=== PATIENT | female | born 1945 | race Caucasian/White ===

== ENCOUNTER → 2019-10-28 16:31 | Outpatient (BNVA) | payer MEDICARE, SELFPAY | PROVIDERS: Family Provider Internal Medicine; PCP Internal Medicine; Visit Provider Urology | DX: B37.3 Candidiasis of vulva and vagina (principal); N30.90 Cystitis, unspecified without hematuria; N20.9 Urinary calculus, unspecified | CPT/HCPCS: 80053; 81001; 87077; 87086; 87186 ==

== ENCOUNTER → 2019-12-17 12:55 | Outpatient (BNVA) | payer MEDICARE, SELFPAY | PROVIDERS: Family Provider Internal Medicine; PCP Internal Medicine; Visit Provider Urology | DX: N30.90 Cystitis, unspecified without hematuria (principal); N20.9 Urinary calculus, unspecified | CPT/HCPCS: 81001 ==

== ENCOUNTER 2022-09-21 04:17 | Emergency (ER) | payer MEDICARE, SELFPAY ==
[2022-09-21 04:38] VITALS: BP 141/85; PULSE 82; RESP 20; TEMP 37.1; O2SAT 97; BMI 24.0
[2022-09-21 04:40] LABS: Basophils % 0.3 %; Eosinophils % 0.5 %; Hematocrit 41.5 % (37.0-47.0); Hemoglobin 13.4 g/dL (11.5-15.3); Lymphocytes # 1.6 10^3/uL (0.8-4.8); Lymphocytes % 21.9 %; Mean Corpuscular HGB Conc 32.3 g/dL (30.0-36.0); Mean Corpuscular Hemoglobin 28.9 pg (28.0-34.0); Mean Corpuscular Volume 89.4 fl (81-99); Mean Platelet Volume 9.1 fL (7.4-10.4); Monocytes # 0.5 10^3/uL (0.2-0.9); Monocytes % 6.5 %; Neutrophils # 5.24 10^3/uL (1.8-7.7); Neutrophils % 70.4 %; Nucleated Red Blood Cells % 0 %; Platelet Count 191 10^3/cmm (130-400); Red Blood Count 4.64 10^6/uL (4.1-5.3); Red Cell Distribution Width 12.7 % (12.1-15.1); White Blood Count 7.4 10^3/uL (4.0-10.0)
--- NOTE | 2022-09-21 04:41 | CTR_ITS ---
PROCEDURE INFORMATION: Exam: CT Abdomen And Pelvis Without Contrast Exam date and time: 09/21/2022 4:58 AM Age: 77 years old Clinical indication: Abdominal pain; Flank; Right; Additional info: Right flank pain TECHNIQUE: Imaging protocol: Computed tomography of the abdomen and pelvis without contrast. Radiation optimization: All CT scans at this facility use at least one of these dose optimization techniques: automated exposure control; mA and/or kV adjustment per patient size (includes targeted exams where dose is matched to clinical indication); or iterative reconstruction. REPORTING DATA: Count of CT and Cardiac NM exams in prior 12 months: This patient has received 0 known CTs and 0 known cardiac nuclear medicine studies in the 12 months prior to the current study. COMPARISON: CT kidney stone [id number] 08/29/2016 12:35 PM RADIATION DOSE METRICS: Total DLP (mGy-cm): 357.9 FINDINGS: Lungs: Lung bases are clear. Diaphragm: There is a small sliding-type hiatal hernia. Liver: There are few small liver cysts measuring up to 12 mm, decreased in size since 2017. Gallbladder and bile ducts: The gallbladder is normal. There is no biliary dilation. Pancreas: The pancreas is unremarkable. Spleen: The spleen is unremarkable. Adrenal glands: The adrenal glands are unremarkable. Kidneys and ureters: The right kidney is under rotated. There is diffuse hypodensity of the right kidney compared to the left consistent with edema. There is severe right hydronephrosis and hydroureter to the level of a stone at the ureterovesical junction measuring 3 x 2 x 2 mm. No intrarenal stones. The left kidney and ureter are unremarkable. Stomach and bowel: The stomach is decompressed, preventing meaningful evaluation of wall thickness. The small bowel is nondilated. Unremarkable rectosigmoid anastomosis. No sign colonic inflammation. Appendix: The appendix is not visible. Intraperitoneal space: There is no free air or significant intraperitoneal free fluid. Vasculature: There is mild aortic atherosclerotic disease. Lymph nodes: There is no lymphadenopathy in the retroperitoneum, mesentery, pelvis or inguinal regions. Urinary bladder: The urinary bladder is decompressed, preventing meaningful evaluation of wall thickness. Reproductive: The uterus is absent. There is no adnexal mass or large cyst. Bones/joints: There is mild degenerative disease in the lumbar spine. The pelvis and hips are unremarkable. Soft tissues: The abdominal wall is intact. CT/CT kidney stone [id number] IMPRESSION: 1. 3 mm obstructive stone at the right ureterovesical junction producing severe hydronephrosis and renal edema. 2. No intrarenal stones. 3. Incidental findings above. COMMENTS: Consistent with the [employer]'s Incidental Findings Committee white paper (J Am Rafael Radiol 2018): Any incidental renal lesion less than 1 cm or classified as too small to characterize, or any incidental cystic renal lesion characterized as simple-appearing, is likely benign. No follow-up imaging is recommended for these lesions per consensus recommendations based on imaging criteria.
--- NOTE | 2022-09-21 04:42 | ED_ITS ---
Documented by User: Zonia Case MD 09/21/22 04:44 HPI - Female Genitourinary General: Chief complaint: Urogenital-Female Stated complaint: back pain, dx with kidney stone Time Seen by Provider: 09/21/22 04:23 Source: patient Mode of arrival: ambulatory Limitations: no limitations History of Present Illness: 77-year-old female states she started having a sudden onset of flank pain yesterday states in her right flank goes to her right groin she has been having nausea and vomiting with that states her pain is a 9 out of 10. She believes she may have a kidney stone no history of kidney stone in the past. Denies any actual abdominal pain denies any worsening proving factors. Associated symptoms: Reports abdominal pain and nausea; Deny headache(s) Review of Systems Const: Denies: fever(s), chills, body aches or change in appetite ENMT: Denies: throat pain or dental pain Card: Denies: chest pain Resp: Denies: dyspnea GI: Reports: abdominal pain, nausea and vomiting; Denies: diarrhea : Reports: flank pain; Denies: dysuria Musc: Denies: neck pain or back pain Skin/Breast: Denies: rash Neuro: Denies: headache(s) PFSH ED PFSH: Medical History Chronic cystitis History of benign breast biopsy History of colon cancer Insomnia Recurrent cystitis Urolithiasis Yeast vaginitis Surgical History History of appendectomy History of hysterectomy History of partial colectomy Family History Father , at age 42 MVA (motor vehicle accident) Mother , at age 92 No problems noted. Other Cancer Lung disease Social History Smoking and tobacco status: never smoked Alcohol intake: never Marital status: Current occupational status: retired Physical Exam Const: COMMON NORMALS: patient oriented x3 and healthy appearing HENMT: COMMON NORMALS: normocephalic and atraumatic HEAD & SCALP: normocephalic and atraumatic Eye: COMMON NORMALS: conjunctivae normal CONJUNCTIVA: Yes conjunctivae normal Neck/C-Spine: COMMON NORMALS: full ROM and supple Chest: COMMONS NORMALS: normal inspection of the chest and normal palpation of entire chest wall Resp: COMMON NORMALS: normal respiratory effort, No retractions, No use of accessory muscles and clear to auscultation bilaterally AUSCULTATION: clear to auscultation bilaterally Cardio: COMMON NORMALS: regular rate, regular rhythm and No murmurs present (Cardio) RATE: regular rate RHYTHM: regular rhythm GI: COMMON NORMALS: Normal to inspection, nondistended, normoactive bowel sounds present, Soft to palpation, non-tender and no masses PALPATION: Yes Soft to palpation Extremity: COMMON NORMALS: normal to inspection and full ROM Neuro: COMMON NORMALS: patient oriented x3, moves all extremities and no focal motor deficits Psych: COMMON NORMALS: mental status grossly normal, Normal thought process present and cooperative THOUGHT PROCESS: Normal thought process present Skin: COMMON NORMALS: no rashes or lesions noted and no wounds GENERAL SKIN EXAM: no rashes or lesions noted Course Vital Signs: Vital signs: Vital Signs Temperature 98.7 F 09/21/22 04:38 Pulse Rate 92 09/21/22 05:30 Respiratory Rate 17 09/21/22 07:55 Blood Pressure 133/70 09/21/22 07:55 Pulse Oximetry 97 09/21/22 07:55 Oxygen Delivery Me thod Room Air 09/21/22 07:00 MDM - Female Lab Data 09/21/22 04:34 09/21/22 04:34 Radiology Impressions Abdomen/Pelvis CT 09/21/22 04:41 IMPRESSION: 1. 3 mm obstructive stone at the right ureterovesical junction producing severe hydronephrosis and renal edema. 2. No intrarenal stones. 3. Incidental findings above. COMMENTS: Consistent with the [employer]'s Incidental Findings Committee white paper (J Am Rafael Radiol 2018): Any incidental renal lesion less than 1 cm or classified as too small to characterize, or any incidental cystic renal lesion characterized as simple-appearing, is likely benign. No follow-up imaging is recommended for these lesions per consensus recommendations based on imaging criteria. Laboratory Results WBC 7.4 10^3/uL (4.0-10.0) 09/21/22 04:34 RBC 4.64 10^6/uL (4.1-5.3) 09/21/22 04:34 Hgb 13.4 g/dL (11.5-15.3) 09/21/22 04:34 Hct 41.5 % (37.0-47.0) 09/21/22 04:34 MCV 89.4 fl (81-99) 09/21/22 04:34 MCH 28.9 pg (28.0-34.0) 09/21/22 04:34 MCHC 32.3 g/dL (30.0-36.0) 09/21/22 04:34 RDW 12.7 % (12.1-15.1) 09/21/22 04:34 Plt Count 191 10^3/cmm (130-400) 09/21/22 04:34 MPV 9.1 fL (7.4-10.4) 09/21/22 04:34 Neut % (Auto) 70.4 % 09/21/22 04:34 Lymph % (Auto) 21.9 % 09/21/22 04:34 [place] % (Auto) 6.5 % 09/21/22 04:34 Eos % (Auto) 0.5 % 09/21/22 04:34 Baso % (Auto) 0.3 % 09/21/22 04:34 Neut # (Auto) 5.24 10^3/uL (1.8-7.7) 09/21/22 04:34 Lymph # (Auto) 1.6 10^3/uL (0.8-4.8) 09/21/22 04:34 [place]aine # (Auto) 0.5 10^3/uL (0.2-0.9) 09/21/22 04:34 Eos # (Auto) 0.0 10^3/uL (0.0-0.8) 09/21/22 04:34 Baso # (Auto) 0.0 10^3/uL (0.0-0.1) 09/21/22 04:34 Nucleated RBC % (auto) 0 % 09/21/22 04:34 Nucleated RBCs # 0.0 /100WBC 09/21/22 04:34 Sodium 138 mmol/L (136-145) 09/21/22 04:34 Potassium 3.8 mmol/L (3.5-5.1) 09/21/22 04:34 Chloride 101 mmol/L (98-107) 09/21/22 04:34 Carbon Dioxide 24 mmol/L (22-29) 09/21/22 04:34 Anion Gap 16.8 (5-19) 09/21/22 04:34 BUN 15 mg/dL (8-23) 09/21/22 04:34 Creatinine 0.7 mg/dL (0.5-0.9) 09/21/22 04:34 GFR Calculation Not Reportable 09/21/22 04:34 Glucose 112 mg/dL (65-115) 09/21/22 04:34 Calculated Osmolality 288 mOsm/kg (285-295) 09/21/22 04:34 Calcium 9.4 mg/dL (8.5-10.5) 09/21/22 04:34 Total Bilirubin 1.1 mg/dL (0.15-1.2) 09/21/22 04:34 AST 26 U/L (0-32) 09/21/22 04:34 ALT 12 U/L (0-33) 09/21/22 04:34 Alkaline Phosphatase 74 U/L (35-105) 09/21/22 04:34 Total Protein 7.3 g/dL (6.6-8.7) 09/21/22 04:34 Albumin 4.4 g/dL (3.5-5.2) 09/21/22 04:34 Globulin 2.9 g/dL (1.3-4.6) 09/21/22 04:34 Lipase 28 U/L (13-60) 09/21/22 04:34 Urine Color Yellow (Yellow) 09/21/22 06:02 Urine Appearance Hazy (CLEAR) A 09/21/22 06:02 Urine pH 5 (5-7) 09/21/22 06:02 Ur Specific [place] 1.020 (1.005-1.030) 09/21/22 06:02 Urine Protein Neg (Negative) 09/21/22 06:02 Urine Glucose (UA) Norm (Normal) 09/21/22 06:02 Urine Ketones 2+ (Negative) H 09/21/22 06:02 Urine Blood 2+ (Negative) H 09/21/22 06:02 Urine Nitrate Negative (Negative) 09/21/22 06:02 Urine Bilirubin Neg (Negative) 09/21/22 06:02 Urine Urobilinogen Neg mg/dL (Negative) 09/21/22 06:02 Ur Leukocyte Esterase Negative (Negative) 09/21/22 06:02 Urine RBC 5-10 /hpf (0-2) H 09/21/22 06:02 Urine WBC 0-4 /hpf (0-5) H 09/21/22 06:02 Ur Squamous Epith Cells 0-4 /hpf (0-5) H 09/21/22 06:02 Calcium Oxalate Crystal 25-40 /hpf H 09/21/22 06:02 Amorphous Sediment Not Reportable 09/21/22 06:02 Urine Bacteria Trace /hpf (NONE) 09/21/22 06:02 Urine Mucus 1+ /hpf 09/21/22 06:02 Discharge Plan Discharge Patient Disposition: Home Clinical Impression: Nephrolithiasis Condition: Stable Prescriptions: New hydrocodone-acetaminophen 5-325 mg tablet 1 tab PO Q6H PRN (Reason: pain) Qty: 20 0RF promethazine 25 mg tablet 25 mg PO Q6H PRN (Reason: nausea and vomiting) Qty: 20 0RF tamsulosin 0.4 mg capsule 0.4 mg PO DAILY Qty: 30 0RF No Action fluconazole 150 mg tablet 150 mg PO Q3D Qty: 2 1RF ciprofloxacin HCl 500 mg tablet 500 mg PO BID Qty: 60 1RF Discharge Orders: Discharge ED (Routine); Ordered 09/21/22 Ordered By: Renny Salgado Referrals: Casper Concepcion DO [Primary Care Provider] - Discharge Diet: Usual diet Discharge Activity: Increase activity as tolerated Patient Instructions: Opioid Safety, Pain Management Activity Restrictions/Additional Instructions: You were seen today for nephrolithiasis. You have a 3 mm stone that is about to pass into the bladder. Recommend use of hydrocodone for pain tamsulosin 1 daily which helps kidney stones pass faster. You can use the promethazine as needed for nausea and vomiting. Case management make arrangements for you to follow-up with Dr. Romero as an outpatient. Coding Level of Care Code ED Dye Colorist Formulator for Chg Fwd Documented by User: Renny Salgado DO 09/21/22 08:16 HPI - Female Genitourinary General: Chief complaint: Urogenital-Female Stated complaint: back pain, dx with kidney stone Time Seen by Provider: 09/21/22 04:23 PFSH ED PFSH: Medical History Chronic cystitis History of benign breast biopsy History of colon cancer Insomnia Recurrent cystitis Urolithiasis Yeast vaginitis Surgical History History of appendectomy History of hysterectomy History of partial colectomy Family History Father , at age 42 MVA (motor vehicle accident) Mother , at age 92 No problems noted. Other Cancer Lung disease Social History Smoking and tobacco status: never smoked Alcohol intake: never Marital status: Current occupational status: retired Course Vital Signs: Vital signs: Vital Signs Temperature 98.7 F 09/21/22 04:38 Pulse Rate 92 09/21/22 05:30 Respiratory Rate 17 09/21/22 07:55 Blood Pressure 133/70 09/21/22 07:55 Pulse Oximetry 97 09/21/22 07:55 Oxygen Delivery Me thod Room Air 09/21/22 07:00 MDM - Female Medical Decision Making Care assumed at change of shift from Dr. Case. Patient is resting comfortably when I went to the exam room. CT shows 3 mm right UVJ stone. Discharge patient home on tamsulosin and hydrocodone strain urine and also promethazine as needed. Follow-up appointment with Dr. Romero through case management. Medical Records I reviewed the patient's medical records. Lab Data I reviewed the patient's lab results. 09/21/22 04:34 09/21/22 04:34 Radiology Impressions Abdomen/Pelvis CT 09/21/22 04:41 IMPRESSION: 1. 3 mm obstructive stone at the right ureterovesical junction producing severe hydronephrosis and renal edema. 2. No intrarenal stones. 3. Incidental findings above. COMMENTS: Consistent with the [employer]'s Incidental Findings Committee white paper (J Am Rafael Radiol 2018): Any incidental renal lesion less than 1 cm or classified as too small to characterize, or any incidental cystic renal lesion characterized as simple-appearing, is likely benign. No follow-up imaging is recommended for these lesions per consensus recommendations based on imaging criteria. Laboratory Results WBC 7.4 10^3/uL (4.0-10.0) 09/21/22 04:34 RBC 4.64 10^6/uL (4.1-5.3) 09/21/22 04:34 Hgb 13.4 g/dL (11.5-15.3) 09/21/22 04:34 Hct 41.5 % (37.0-47.0) 09/21/22 04:34 MCV 89.4 fl (81-99) 09/21/22 04:34 MCH 28.9 pg (28.0-34.0) 09/21/22 04:34 MCHC 32.3 g/dL (30.0-36.0) 09/21/22 04:34 RDW 12.7 % (12.1-15.1) 09/21/22 04:34 Plt Count 191 10^3/cmm (130-400) 09/21/22 04:34 MPV 9.1 fL (7.4-10.4) 09/21/22 04:34 Neut % (Auto) 70.4 % 09/21/22 04:34 Lymph % (Auto) 21.9 % 09/21/22 04:34 [place]aine % (Auto) 6.5 % 09/21/22 04:34 Eos % (Auto) 0.5 % 09/21/22 04:34 Baso % (Auto) 0.3 % 09/21/22 04:34 Neut # (Auto) 5.24 10^3/uL (1.8-7.7) 09/21/22 04:34 Lymph # (Auto) 1.6 10^3/uL (0.8-4.8) 09/21/22 04:34 [place] # (Auto) 0.5 10^3/uL (0.2-0.9) 09/21/22 04:34 Eos # (Auto) 0.0 10^3/uL (0.0-0.8) 09/21/22 04:34 Baso # (Auto) 0.0 10^3/uL (0.0-0.1) 09/21/22 04:34 Nucleated RBC % (auto) 0 % 09/21/22 04:34 Nucleated RBCs # 0.0 /100WBC 09/21/22 04:34 Sodium 138 mmol/L (136-145) 09/21/22 04:34 Potassium 3.8 mmol/L (3.5-5.1) 09/21/22 04:34 Chloride 101 mmol/L (98-107) 09/21/22 04:34 Carbon Dioxide 24 mmol/L (22-29) 09/21/22 04:34 Anion Gap 16.8 (5-19) 09/21/22 04:34 BUN 15 mg/dL (8-23) 09/21/22 04:34 Creatinine 0.7 mg/dL (0.5-0.9) 09/21/22 04:34 GFR Calculation Not Reportable 09/21/22 04:34 Glucose 112 mg/dL (65-115) 09/21/22 04:34 Calculated Osmolality 288 mOsm/kg (285-295) 09/21/22 04:34 Calcium 9.4 mg/dL (8.5-10.5) 09/21/22 04:34 Total Bilirubin 1.1 mg/dL (0.15-1.2) 09/21/22 04:34 AST 26 U/L (0-32) 09/21/22 04:34 ALT 12 U/L (0-33) 09/21/22 04:34 Alkaline Phosphatase 74 U/L (35-105) 09/21/22 04:34 Total Protein 7.3 g/dL (6.6-8.7) 09/21/22 04:34 Albumin 4.4 g/dL (3.5-5.2) 09/21/22 04:34 Globulin 2.9 g/dL (1.3-4.6) 09/21/22 04:34 Lipase 28 U/L (13-60) 09/21/22 04:34 Urine Color Yellow (Yellow) 09/21/22 06:02 Urine Appearance Hazy (CLEAR) A 09/21/22 06:02 Urine pH 5 (5-7) 09/21/22 06:02 Ur Specific [place] 1.020 (1.005-1.030) 09/21/22 06:02 Urine Protein Neg (Negative) 09/21/22 06:02 Urine Glucose (UA) Norm (Normal) 09/21/22 06:02 Urine Ketones 2+ (Negative) H 09/21/22 06:02 Urine Blood 2+ (Negative) H 09/21/22 06:02 Urine Nitrate Negative (Negative) 09/21/22 06:02 Urine Bilirubin Neg (Negative) 09/21/22 06:02 Urine Urobilinogen Neg mg/dL (Negative) 09/21/22 06:02 Ur Leukocyte Esterase Negative (Negative) 09/21/22 06:02 Urine RBC 5-10 /hpf (0-2) H 09/21/22 06:02 Urine WBC 0-4 /hpf (0-5) H 09/21/22 06:02 Ur Squamous Epith Cells 0-4 /hpf (0-5) H 09/21/22 06:02 Calcium Oxalate Crystal 25-40 /hpf H 09/21/22 06:02 Amorphous Sediment Not Reportable 09/21/22 06:02 Urine Bacteria Trace /hpf (NONE) 09/21/22 06:02 Urine Mucus 1+ /hpf 09/21/22 06:02 Discharge Plan Discharge Patient Disposition: Home Clinical Impression: Nephrolithiasis Condition: Stable Prescriptions: New hydrocodone-acetaminophen 5-325 mg tablet 1 tab PO Q6H PRN (Reason: pain) Qty: 20 0RF promethazine 25 mg tablet 25 mg PO Q6H PRN (Reason: nausea and vomiting) Qty: 20 0RF tamsulosin 0.4 mg capsule 0.4 mg PO DAILY Qty: 30 0RF No Action fluconazole 150 mg tablet 150 mg PO Q3D Qty: 2 1RF ciprofloxacin HCl 500 mg tablet 500 mg PO BID Qty: 60 1RF Discharge Orders: Discharge ED (Routine); Ordered 09/21/22 Ordered By: Renny Salgado Referrals: Casper Concepcion DO [Primary Care Provider] - Discharge Diet: Usual diet Discharge Activity: Increase activity as tolerated Patient Instructions: Opioid Safety, Pain Management Activity Restrictions/Additional Instructions: You were seen today for nephrolithiasis. You have a 3 mm stone that is about to pass into the bladder. Recommend use of hydrocodone for pain tamsulosin 1 daily which helps kidney stones pass faster. You can use the promethazine as needed f or nausea and vomiting. Case management make arrangements for you to follow-up with Dr. Romero as an outpatient. Coding Level of Care Code ED Dye Colorist Formulator for Ryan Leyva
[2022-09-21] MEDS: HYDROmorphone 1 mg/mL INJ 1 mL 0.5 MG IVP (04:50)
[2022-09-21] MEDS: ondansetron 2 mg/ML SDV 2 mL 4 MG IVP (04:50)
[2022-09-21] MEDS: sodium chloride 0.9% 1,000 ML 999 ML IV (04:51)
[2022-09-21 04:59] LABS: Alanine Aminotransferase 12 U/L (0-33); Albumin Level 4.4 g/dL (3.5-5.2); Alkaline Phosphatase 74 U/L (35-105); Anion Gap 16.8 (5-19); Aspartate Amino Transferase 26 U/L (0-32); Blood Urea Nitrogen 15 mg/dL (8-23); Calcium 9.4 mg/dL (8.5-10.5); Carbon Dioxide 24 mmol/L (22-29); Chloride 101 mmol/L (98-107); Globulin 2.9 g/dL (1.3-4.6); Glucose 112 mg/dL (65-115); Lipase 28 U/L (13-60); Osmolality Calculated 288 mOsm/kg (285-295); Potassium 3.8 mmol/L (3.5-5.1); Sodium 138 mmol/L (136-145); Total Bilirubin 1.1 mg/dL (0.15-1.2); Total Protein 7.3 g/dL (6.6-8.7)
[2022-09-21 05:00] VITALS: PULSE 82; RESP 20; O2SAT 98
[2022-09-21 05:30] VITALS: BP 155/86; PULSE 92; RESP 18; O2SAT 98
[2022-09-21] MEDS: HYDROmorphone 1 mg/mL INJ 1 mL IVP (05:34)
[2022-09-21 06:35] LABS: Add Urine Microscopic? YES; Bilirubin Urine Neg (Negative); Blood Urine 2+ (Negative); Glucose Urine UA Norm (Normal); Ketones Urine 2+ (Negative); Leukocyte Esterase Urine Negative (Negative); Nitrate Urine Negative (Negative); Protein Urine Neg (Negative); Urine Appearance Hazy (CLEAR); Urine Color Yellow (Yellow); Urobilinogen Urine Neg (Negative); pH Urine 5 (5-7)
[2022-09-21 06:37] LABS: Add Urine Culture? No; Bacteria Urine TRACE /hpf; Calcium Oxalate Crystals Urine 25-40 /hpf; Mucus Urine 1+ /hpf; Squamous Epithelial Cell Urine 0-4 /hpf (0-5); WBC Urine 0-4 /hpf (0-5)
[2022-09-21 07:00] VITALS: BP 133/70; RESP 17; O2SAT 97
[2022-09-21] MEDS: ketorolac 30 mg/mL INJ 15 MG IVP (07:45)
[2022-09-21 07:55] VITALS: BP 133/70; RESP 17; O2SAT 97
== END 2022-09-21 07:59 | disposition home or self-care (01) ==
PROVIDERS: Emergency Medicine; Emergency Provider Family Medicine; PCP Electrodiagnostic Medicine
DX: N13.2 Hydronephrosis with renal and ureteral calculous obstruction (principal); Z85.038 Personal history of other malignant neoplasm of large intestine; Z87.442 Personal history of urinary calculi
CPT/HCPCS: 74176; 80053; 81001; 83690; 85025; 96361; 96374; 96375; 96376; 99285; J1170; J1885; J2405; J7030

== ENCOUNTER 2022-11-10 08:23 | Outpatient (CLI) | payer MEDICARE, SELFPAY ==
--- NOTE | 2022-11-10 08:58 | MM_ITS ---
WS: [id number] BILATERAL SCREENING DIGITAL TOMOSYNTHESIS MAMMOGRAM WITH CAD HISTORY: breast CA screening, mass in past COMPARISON: 10/25/2017, 06/22/2015 Bilateral CC and MLO views with tomosynthesis and synthetic mammography submitted. Computer aided det ection analyzed. Breast composition: There are scattered areas of fibroglandular density. No suspicious masses, microc alcifications or architectural distortion. Benign calcifications in each breast. No distortion. MM/[place] [id number] IMPRESSION: BI-RADS: 2-Benign FOLLOW UP: 1 Year Follow-up
== END 2022-11-10 08:24 | disposition home or self-care (01) ==
LOC: RAD 08:25
PROVIDERS: PCP Family Medicine; Visit Provider Family Medicine
DX: Z12.31 Encounter for screening mammogram for malignant neoplasm of breast (principal)
CPT/HCPCS: 77063; 77067